=== PATIENT | female | born 1995 | race Caucasian/White ===

== ENCOUNTER 2017-04-05 15:23 | Emergency (ER) | payer OTHER ==
[~2017-04-05] VITALS: Ht 175.3 cm; Wt 79.4 kg
[~2017-04-05 15:23] MED LIST: ACETAMINOPHEN-1 EAC1 PO; ACETAMINOPHEN-120 ML PO; AMOXICILLIN500 M1 PO; CIPROFLOXACIN500 M1 PO; FLEXERIL PO; HYDROCODONE-AP1 EAC6 PO; HYDROCODONE-APA1 TA1 PO; IBUPROFEN 800800 M1 PO; IBUPROFEN 800800 MG PO; LEVAQUIN 500 M500 MG PO; LIDOCAINE VISC100 M1 PO; MEDROLDOSEPACK PO; NAPROSYN500 MG PO; NOHOMEMEDICATIONS; NORCO 5-325 TA1 EACH PO; PENICILLIN VK500 MG PO; PEPCID20 MG PO; PHENERGAN 25 MG25 M1 PO; PREDNISONE 20 M20 M1 PO; PREDNISONE 20 M20 MG PO; PROAIR HFA8.5 GM INH; TRINATE TABLET1 TAB PO; ULTRAM 50MG TAB50 MG PO; VENTOLIN HFA 1818 GM INH; VENTOLIN17 GM INH; ZOFRAN ODT4 MG PO; ZOFRAN4 MG PO; ZPAK PO; ZYRTEC10 M5 PO
[2017-04-05] MEDS ORDERED: AMOXICILLIN 50500 MG PO (15:36)
[2017-04-05] MEDS ORDERED: TYLENOL EXTRA500 MG PO (15:37)
[2017-04-05] MEDS ORDERED: IBUPROFEN 800800 M1 PO (15:37)
[2017-04-05] MEDS ORDERED: TRAMADOL 50 MG50 MG PO (16:36)
[2017-04-05 16:43] VITALS: BP 128/76
== END 2017-04-05 16:44 | disposition home or self-care (01) ==
LOC: M.ERS 15:23
DX: M27.3 Alveolitis of jaws (principal); F31.9 Bipolar disorder, unspecified; F41.9 Anxiety disorder, unspecified; F17.210 Nicotine dependence, cigarettes, uncomplicated; Z98.890 Other specified postprocedural states

== ENCOUNTER 2017-04-22 22:38 | Emergency (ER) | payer OTHER ==
[~2017-04-22] VITALS: Ht 172.7 cm; Wt 74.8 kg
[~2017-04-22 22:38] MED LIST changes: +AMOXICILLIN 50500 MG PO; +TRAMADOL 50 MG50 MG PO; +TYLENOL EXTRA500 MG PO
[2017-04-22 23:34] VITALS: BP 123/69
== END 2017-04-22 23:35 | disposition home or self-care (01) ==
LOC: M.ERS 22:38
DX: J02.8 Acute pharyngitis due to other specified organisms (principal); B97.89 Other viral agents as the cause of diseases classified elsewhere; F31.9 Bipolar disorder, unspecified; F41.9 Anxiety disorder, unspecified; F17.210 Nicotine dependence, cigarettes, uncomplicated; Z98.890 Other specified postprocedural states; Z90.49 Acquired absence of other specified parts of digestive tract

== ENCOUNTER 2017-07-18 02:03 | Emergency (ER) | payer OTHER ==
[~2017-07-18] VITALS: Ht 175.3 cm; Wt 81.7 kg
[2017-07-18 03:22] LABS: ABSOLUTE BASOPHILS 0.1 thou/uL (0.0-0.2); ABSOLUTE EOSINOPHILS 0.4 thou/uL (0.0-0.7); ABSOLUTE LYMPHOCYTES 3.2 thou/uL (0.8-5.3); ABSOLUTE MONOCYTES 0.8 thou/uL (0.0-1.2); ABSOLUTE NEUTROPHILS 6.9 thou/uL (1.6-8.1); BASOPHILS 0.6 %; EOSINOPHILS 3.5 %; HEMATOCRIT 40.9 % (37.0-47.0); HEMOGLOBIN 13.8 gm/dL (12.0-15.0); LYMPHOCYTES 28.2 %; MCH 28.5 pg (26.0-34.0); MCHC 33.7 g/dL (28.0-37.0); MCV 84.5 fL (80.0-100.0); MONOCYTES 7.1 %; MPV 8.8 fl. (7.2-11.1); NUCLEATED RBCS 0 /100WBC; PLATELET COUNT* 265 thou/uL (150-400); POLYS 60.6 %; RBC 4.84 mil/uL (4.20-5.00); WBC 11.3 thou/uL (4.0-11.0)
[2017-07-18 03:29] LABS: CALCIUM 8.8 mg/dL (8.5-10.1); CREATININE 0.8 mg/dL (0.6-1.3); POTASSIUM 3.7 mmol/L (3.5-5.1)
[2017-07-18 03:33] LABS: TOTAL BILIRUBIN 0.4 mg/dL (<0.1-1.0); TOTAL PROTEIN 7.5 g/dL (6.4-8.2)
[2017-07-18 04:23] LABS: URINE BILIRUBIN NEGATIVE (Negative); URINE BLOOD NEGATIVE (Negative); URINE CLARITY CLEAR; URINE COLOR YELLOW; URINE GLUCOSE-RANDOM NEGATIVE (Negative); URINE KETONES NEGATIVE (Negative); URINE LEUKOCYTES-REFLEX NEGATIVE (Negative); URINE NITRITE-REFLEX NEGATIVE (Negative); URINE PROTEIN NEGATIVE (Negative); URINE SPECIFIC GRAVITY <= 1.005 (1.005-1.030); URINE UROBILINOGEN 0.2 E.U./dl (0.2-1.0)
[2017-07-18 04:58] VITALS: BP 105/70
== END 2017-07-18 04:59 | disposition home or self-care (01) ==
LOC: M.ERS 02:03
PROVIDERS: Personal Emergency Response Attendant
DX: K59.00 Constipation, unspecified (principal); F31.9 Bipolar disorder, unspecified; F41.9 Anxiety disorder, unspecified; F17.210 Nicotine dependence, cigarettes, uncomplicated; Z90.49 Acquired absence of other specified parts of digestive tract; Z98.890 Other specified postprocedural states

== ENCOUNTER 2017-12-16 18:54 | Emergency (ER) | payer OTHER ==
[~2017-12-16] VITALS: Ht 172.7 cm; Wt 65.8 kg
[2017-12-16 20:42] LABS: ABSOLUTE BASOPHILS 0.1 thou/uL (0.0-0.2); ABSOLUTE EOSINOPHILS 0.2 thou/uL (0.0-0.7); ABSOLUTE LYMPHOCYTES 2.1 thou/uL (0.8-5.3); ABSOLUTE MONOCYTES 1.1 thou/uL (0.0-1.2); ABSOLUTE NEUTROPHILS 7.3 thou/uL (1.6-8.1); BASOPHILS 0.8 %; HEMATOCRIT 41.9 % (37.0-47.0); LYMPHOCYTES 19.5 %; MCH 29.9 pg (26.0-34.0); MCHC 33.5 g/dL (28.0-37.0); MCV 89.4 fL (80.0-100.0); MONOCYTES 10.3 %; MPV 8.7 fl. (7.2-11.1); NUCLEATED RBCS 0 /100WBC; PLATELET COUNT* 277 thou/uL (150-400); POLYS 67.4 %; RBC 4.68 mil/uL (4.20-5.00); WBC 10.9 thou/uL (4.0-11.0)
[2017-12-16 20:51] LABS: ANION GAP 5 mmol/L (7-16); BUN 10 mg/dL (7-18); CALCIUM 8.6 mg/dL (8.5-10.1); CHLORIDE 99 mmol/L (98-107); CO2 32 mmol/L (21-32); CREATININE 0.8 mg/dL (0.6-1.3); GLUCOSE 72 mg/dL (70-99); POTASSIUM 3.5 mmol/L (3.5-5.1); SODIUM 136 mmol/L (136-145)
[2017-12-16 21:02] LABS: ALBUMIN 3.2 g/dL (3.4-5.0); ALKALINE PHOSPHATASE 65 U/L (46-116); NT-PRO BRAIN NAT PEPTIDE 38 pg/mL (<300); SGOT 10 U/L (15-37); SGPT 14 U/L (30-65); TOTAL BILIRUBIN 0.2 mg/dL (<0.1-1.0); TOTAL PROTEIN 6.9 g/dL (6.4-8.2); TROPONIN-I LEVEL <0.06 ng/mL (<0.06)
[2017-12-16] MEDS ORDERED: VENTOLIN HFA 1818 GM INH (21:14)
[2017-12-16] MEDS ORDERED: MEDROLDOSEPACK PO (21:14)
[2017-12-16] MEDS ORDERED: ZPAK PO (21:14)
[2017-12-16] MEDS ORDERED: PROMETH-CODEIN 65 ML PO (21:14)
[2017-12-16 21:34] LABS: INFLUENZA A ANTIGEN None Detected (None Detect); INFLUENZA B ANTIGEN None Detected (None Detect)
[2017-12-16 22:07] VITALS: BP 93/59
--- NOTE | 2017-12-17 11:12 | EKG ---
[place] [address] ELECTROCARDIOGRAM REPORT Name: BERNARD SOY TERRY Room: [facility]#: [id number] Admission: 12/16/17 Attend Phys: Discharge: 12/16/17 Date of : [birth year] Report #: [id number] THIS REPORT FOR: //name// [facility] ED Test Date: 2017-12-16 Test Time: 20:11:12 Pat Name: ALTHEA SO Department: Room: Gender: F Process Lead: HERMINIO : 1995 Requested By: Lakisha Guillen Order Number: [id number] MD: Saman Giordano Measurements Intervals [place] Rate: 93 P: 57 OK: 122 QRS: 80 QRSD: 93 T: 27 QT: 336 QTc: 418 Interpretive Statements Sinus rhythm Borderline T wave abnormalities Compared to ECG 05/25/2016 23:57:27 No significant changes Electronically Signed On 12-17-2017 11:12:37 CDT by Saman Giordano [email or web address] <ELECTRONICALLY SIGNED> By: Saman Giordano MD, [facility] 12/17/17 1112 10 10 Saman Giordano MD, FACC /EPI
== END 2017-12-16 22:08 | disposition home or self-care (01) ==
LOC: M.ERS 18:54
PROVIDERS: Nurse Practitioner Family
DX: J20.9 Acute bronchitis, unspecified (principal); M94.0 Chondrocostal junction syndrome [Tietze]; F31.9 Bipolar disorder, unspecified; F41.9 Anxiety disorder, unspecified; Z90.49 Acquired absence of other specified parts of digestive tract; Z98.890 Other specified postprocedural states; F17.210 Nicotine dependence, cigarettes, uncomplicated

== ENCOUNTER 2017-12-17 19:21 | Inpatient (IN) | payer OTHER ==
[~2017-12-17] VITALS: Ht 172.7 cm; Wt 65.8 kg
[~2017-12-17 19:21] MED LIST changes: +PROMETH-CODEIN 65 ML PO
[2017-12-17 19:24] VITALS: BP 127/80
[2017-12-17 20:18] LABS: HEMATOCRIT 43.8 % (37.0-47.0); HEMOGLOBIN 14.5 gm/dL (12.0-15.0); MCH 29.6 pg (26.0-34.0); MCV 89.5 fL (80.0-100.0); MPV 9.2 fl. (7.2-11.1); NUCLEATED RBCS 0 /100WBC; PLATELET COUNT* 310 thou/uL (150-400); RDW-CV 14.1 % (10.5-14.5); WBC 12.6 thou/uL (4.0-11.0)
[2017-12-17 20:24] LABS: CALCIUM 8.6 mg/dL (8.5-10.1); CREATININE 0.7 mg/dL (0.6-1.3); POTASSIUM 3.5 mmol/L (3.5-5.1)
[2017-12-17 20:29] LABS: ALBUMIN 3.7 g/dL (3.4-5.0); TOTAL BILIRUBIN 0.2 mg/dL (<0.1-1.0); TOTAL PROTEIN 8.2 g/dL (6.4-8.2)
[2017-12-17 21:02] LABS: ABSOLUTE LYMPHOCYTES 1.8 thou/uL (0.8-5.3); ABSOLUTE MONOCYTES 0.8 thou/uL (0.0-1.2); ABSOLUTE NEUTROPHILS 10.1 thou/uL (1.6-8.1); ATYPICAL LYMPHS 2 %
[2017-12-17 23:20] VITALS: BP 117/73
[2017-12-17 23:43] VITALS: BP 111/78
[2017-12-18 01:19] LABS: URINE BILIRUBIN NEGATIVE (Negative); URINE BLOOD TRACE (Negative); URINE CLARITY CLEAR; URINE COLOR YELLOW; URINE GLUCOSE-RANDOM NEGATIVE (Negative); URINE KETONES NEGATIVE (Negative); URINE LEUKOCYTES-REFLEX NEGATIVE (Negative); URINE PROTEIN NEGATIVE (Negative); URINE SPECIFIC GRAVITY >= 1.030 (1.005-1.030); URINE UROBILINOGEN 0.2 E.U./dl (0.2-1.0)
[2017-12-18 01:21] LABS: URINE NITRITE-REFLEX POSITIVE (Negative)
[2017-12-18 01:40] LABS: BACTERIA-REFLEX >30 Many /HPF (None Seen); CASTS None Seen /LPF (None Seen); CRYSTALS None Seen /LPF (None Seen); MUCUS >6 Heavy strn/LPF (None Seen); SQUAMOUS 0-3 Few /LPF (0-3); URINE RBC 3-10 Few /HPF (0-2); URINE WBC-REFLEX 0-5 Rare /HPF (0-5)
--- NOTE | 2017-12-18 01:46 | NUR ---
ASSESSMENT COMPLETE. PT ADMITTED WITH PNEUMONIA. PT IN ER YESTERDAY, DIAGNOSED WITH BRONCHITIS AND FAILED OUT PATIENT MEDICATIONS. PT CAME BACK TONIGHT REPORTING CHEST AND BACK PAIN, CXR SHOWING DEVELOPING PNEUMONITIS. PT GIVEN IV ROCEPHIN AND ZITHROMAX IN ED. PT CAME TO FLOOR IN PAIN. NOTIFIED AND MEDICATION ORDERS RECEIVED AND GIVEN TO PATIENT. PT IS CURRENTLY SLEEPING COMFORTABLY. PT IS ON 2L PER NC, TITRATE TO KEEP >92%. PT HAS IV FLUIDS INFUSING. PT IS UP STANDBY ASSIST FOR WEAKNESS. PT TURNS SELF IN BED. SEE ASSESSMENT AND VITALS FOR OTHER DETAILS. CALL LIGHT WITHIN REACH, WILL CONTINUE PLAN OF CARE
[2017-12-18 01:56] LABS: AMP/METHAMP POSITIVE (Negative); BARBITURATES Negative (Negative); BENZODIAZEPINES Negative (Negative); COCAINE Negative (Negative); METHADONE Negative (Negative); OPIATES POSITIVE (Negative); PCP Negative (Negative); THC Negative (Negative)
[2017-12-18 04:29] VITALS: BP 108/67
[2017-12-18 04:40] LABS: ABSOLUTE EOSINOPHILS 0.1 thou/uL (0.0-0.7); ABSOLUTE LYMPHOCYTES 1.1 thou/uL (0.8-5.3); ABSOLUTE MONOCYTES 0.5 thou/uL (0.0-1.2); BASOPHILS 0.3 %; EOSINOPHILS 1.2 %; LYMPHOCYTES 16.6 %; MCH 29.8 pg (26.0-34.0); MCHC 33.4 g/dL (28.0-37.0); MCV 89.1 fL (80.0-100.0); MONOCYTES 7.9 %; MPV 9.1 fl. (7.2-11.1); NUCLEATED RBCS 0 /100WBC; RDW-CV 13.8 % (10.5-14.5); WBC 6.7 thou/uL (4.0-11.0)
[2017-12-18 05:11] LABS: ALBUMIN 2.5 g/dL (3.4-5.0); CALCIUM 7.3 mg/dL (8.5-10.1); CREATININE 0.7 mg/dL (0.6-1.3); POTASSIUM 3.7 mmol/L (3.5-5.1); TOTAL BILIRUBIN 0.2 mg/dL (<0.1-1.0); TOTAL PROTEIN 5.3 g/dL (6.4-8.2)
[2017-12-18 05:12] LABS: PLATELET COUNT* 201 thou/uL (150-400)
[2017-12-18 08:00] VITALS: BP 98/60
--- NOTE | 2017-12-18 14:36 | EKG ---
[place] [address] ELECTROCARDIOGRAM REPORT Name: IZAIAH SOBRAD DICKERSONE Room: [address] ADM IN .R.#: [id number] Admission: 12/17/17 Attend Phys: Craig Ashton MD Discharge: Date of : [birth year] Report #: [id number] THIS REPORT FOR: //name// [facility] ED Test Date: 2017-12-17 Test Time: 19:28:01 Pat Name: ALTHEA SO Department: Room: [address] Gender: F Tape Maker: : 1995 Requested By: Melissa Oconnor Order Number: [id number] Reading MD: Saman Giordano Measurements Intervals [place] Rate: 123 P: 72 SC: 125 QRS: 62 QRSD: 85 T: -67 QT: 293 QTc: 419 Interpretive Statements Sinus tachycardia Probable left atrial enlargement Nonspecific T abnormalities, diffuse leads Compared to ECG 12/16/2017 20:11:12 Sinus rhythm no longer present T-wave abnormality still present Electronically Signed On 12-18-2017 14:36:01 CDT by Saman Giordano [email or web address] <ELECTRONICALLY SIGNED> By: Saman Giordano MD, FACC 12/18/17 1436 27 27 Saman Giordano MD, FAC /EPI
--- NOTE | 2017-12-18 16:36 | NUR ---
SW attempted to meet with pt; pt was sleeping soundly and did not awaken to SW speaking to pt. Pt lives at home with spouse. Pt independent with mobility and ADLs. SW left resources/referral list on pt tray table. SW to continue to follow to assist with safe dc planning.
--- NOTE | 2017-12-18 16:58 | NUR ---
SHIFT NOTE - PT ASKING FOR PAIN MEDICATIONS MULTIPLE TIMES THIS SHIFT. SPOUSE/BOYFRIEND AT BEDSIDE FOR PART OF THE SHIFT. PT SLEEPING WHEN SPOUSE NOT PRESENT. PT SHOWERED THIS SHIFT.
[2017-12-18 17:18] VITALS: BP 104/69
[2017-12-19] VITALS: BP 102/66
[2017-12-19 04:00] VITALS: BP 103/66
[2017-12-19 04:06] LABS: HEMATOCRIT 33.3 % (37.0-47.0); HEMOGLOBIN 11.2 gm/dL (12.0-15.0); MCH 30.1 pg (26.0-34.0); MCHC 33.5 g/dL (28.0-37.0); MCV 89.9 fL (80.0-100.0); MPV 9.4 fl. (7.2-11.1); RBC 3.71 mil/uL (4.20-5.00); RDW-CV 13.9 % (10.5-14.5); WBC 3.1 thou/uL (4.0-11.0)
[2017-12-19 04:32] LABS: ALBUMIN 2.2 g/dL (3.4-5.0); CALCIUM 7.8 mg/dL (8.5-10.1); CREATININE 0.6 mg/dL (0.6-1.3); MAGNESIUM 1.9 mg/dL (1.8-2.4); POTASSIUM 3.4 mmol/L (3.5-5.1); TOTAL BILIRUBIN 0.1 mg/dL (<0.1-1.0); TOTAL PROTEIN 5.6 g/dL (6.4-8.2)
--- NOTE | 2017-12-19 05:10 | NUR ---
PATIENT SLEPT WELL DURING THIS SHIFT. PT REQUESTED PAIN MEDICATION AT HS THEN HAS SLEPT ALL NIGHT. PT WITH FLUIDS/ANTIBIOTICS INFUSING PER DR ORDER. PT UP AD IZAIAH TO BATHROOM TO VOID. PT WITH LT CHEST/LUNG PAIN WHEN COUGHING. LUNG SOUNDS DIMINISHED. PT DENIES NEEDS AT THIS TIME. FREQUENTLY USED ITEMS AND CALL LIGHT WITHIN REACH. SIDERAILS UPX2. WILL CONTINUE TO MONITOR.
[2017-12-19 08:20] VITALS: BP 125/71
[2017-12-19 12:00] VITALS: BP 105/61
[2017-12-19 16:00] VITALS: BP 121/69
--- NOTE | 2017-12-19 18:15 | NUR ---
PATIENT RESTING IN BED. PATIENT HAS COMPLAINTS OF PAIN WITH COUGHING, TREATED PARTIALLY WITH MEDICATION. PATIENT WAS HOPING TO DISCHARGE TODAY AND MENTIONED LEAVING AMA, BUT EDUCATION PROVIDED ON IMPORTANCE OF CARE AND PATIENT AGREEABLE TO STAYING AT THIS TIME. PATIENT IS AFEBRILE. PATIENT HAS BEEN UP AD IZAIAH IN ROOM. AT BEDSIDE. WILL CONTINUE TO MONITOR.
[2017-12-20] VITALS: BP 105/58
--- NOTE | 2017-12-20 04:41 | NUR ---
PATIENT'S TEMPERATURE DOWN TO 97.1; PT SLEEPING AND COMFORTABLE AT THIS TIME. HR = 95. PT DENIES PAIN/NAUSEA. PT NAUSEATED SEVERAL TIMES DURING THIS SHIFT BUT IS BRINGING IN FOOD FOR THE PATIENT. PT DOES NOT WANT ORDER FOR NAUSEA MEDICATION. PT GIVEN SALTINES AND [place]. ZOSYN INFUSING AT THIS TIME. FREQUENTLY USED ITEMS AND CALL LIGHT WITHIN REACH. SIDERAILS UPX2. AT BEDSIDE. WILL CONTINUE TO MONITOR.
[2017-12-20 05:15] LABS: ABSOLUTE LYMPHOCYTES 1.5 thou/uL (0.8-5.3); ABSOLUTE MONOCYTES 0.7 thou/uL (0.0-1.2); ABSOLUTE NEUTROPHILS 3.3 thou/uL (1.6-8.1); BASOPHILS 0.9 %; EOSINOPHILS 0.6 %; HEMATOCRIT 37.4 % (37.0-47.0); HEMOGLOBIN 12.7 gm/dL (12.0-15.0); LYMPHOCYTES 26.8 %; MCHC 34.1 g/dL (28.0-37.0); MCV 88.2 fL (80.0-100.0); MONOCYTES 12.6 %; MPV 9.4 fl. (7.2-11.1); NUCLEATED RBCS 0 /100WBC; PLATELET COUNT* 239 thou/uL (150-400); POLYS 59.1 %; RBC 4.24 mil/uL (4.20-5.00); RDW-CV 13.9 % (10.5-14.5); WBC 5.5 thou/uL (4.0-11.0)
[2017-12-20 05:27] LABS: ALBUMIN 2.6 g/dL (3.4-5.0); CALCIUM 8.7 mg/dL (8.5-10.1); CREATININE 0.9 mg/dL (0.6-1.3); POTASSIUM 3.7 mmol/L (3.5-5.1); TOTAL BILIRUBIN 0.2 mg/dL (<0.1-1.0); TOTAL PROTEIN 6.5 g/dL (6.4-8.2)
[2017-12-20 08:40] VITALS: BP 84/48
[2017-12-20 16:00] VITALS: BP 108/59
--- NOTE | 2017-12-20 18:40 | NUR ---
PATIENT RESTING IN BED. AT BEDSIDE. PATIENT HAS BEEN AFEBRILE TODAY. PATIENT HAS BEEN TEARFUL AND ANXIOUS TODAY. PATIENT IS CALM AT THIS TIME. PATIENT DENIES ANY PAIN. PATIENT HAS FAIR APPETITE. WILL CONTINUE TO MONITOR.
[2017-12-21] VITALS: BP 106/49
--- NOTE | 2017-12-21 06:53 | NUR ---
PATIENT WITH TEMPERATURE OF 102.8 AT SHIFT CHANGE. TYLENOL GIVEN AND IBUPROFEN GIVEN LATER. PT AFEBRILE AT MIDNIGHT AND PT IS AFEBRILE THIS AM. ATIVAN GIVEN AT 2049 FOR ANXIETY. PT WITH DIMINISHED LUNG SOUNDS. PT UP AD IZAIAH TO BATHROOM. PT'S AT BEDSIDE. DENIES NEEDS AT THIS TIME. FREQUENTLY USED ITEMS AND CALL LIGHT WITHIN REACH. SIDERAILS UPX2. WILL CONTINUE TO MONITOR.
[2017-12-21 08:10] VITALS: BP 117/76
--- NOTE | 2017-12-21 11:00 | NUR ---
CONTINUE TO FOLLOW, MET [place] PT. STATES FEELING MUCH BETTER AND HOPES TO GO HOME. IS UNINSURED BUT HAS COMMUNITY RESOURCE INFO. PT STATES SHE WILL BE ABLE TO AFFORD HER MEDS. DENIES NEEDS
[2017-12-21] MEDS ORDERED: LEVAQUIN 500 M500 M2 PO (11:38)
[2017-12-21 11:40] VITALS: BP 117/76
--- NOTE | 2017-12-21 11:54 | NUR ---
PATIENT DISCHARGED TO HOME AT THIS TIME WITH SPOUSE. IV DC'D. PATIENT REFUSING ANY PO MEDICATIONS AND IV ABX THIS AM, STATED I JUST WANT TO GO HOME. DR. QUINONES FROM ID SAW PATIENT AND OK TO DISCHARGE WITH PO ABX. DR. LU NOTIFIED AND OK TO DISCHARGE HOME. VERBALIZES UNDERSTANDING OF PAPERWORK AND SCRIPT, PATIENT DID TAKE PO DOSE OF LEVAQUIN PRIOR TO DC. PATIENT AMBULATED OUT WITH NURSING STAFF AND ALL BELONGINGS.
--- NOTE | 2018-01-16 08:16 | CON ---
[address] [address] CONSULTATION Name: ALTHEA SAUNDERS Room: [address] IN [place].#: [id number] Admission: 12/17/17 Attend Phys: Craig Ashton MD Discharge: 12/21/17 Date of : [birth year] Report #: [id number] THIS REPORT FOR: //name// CC: Craig Ashton [facility] physician/PCP DATE OF SERVICE: 12/20/2017 CONSULTATION: Infectious diseases. HISTORY OF PRESENT ILLNESS: Ms Saunders is a 22-year-old white female admitted to [facility] on 12/17/2017 because of difficulty breathing. The patient was in the ER on 12/16/2017 complaining of fevers, chills, aching, coughing for 3 weeks and getting worse and developing severe dyspnea. She was diagnosed as having asthmatic bronchitis with an element of panic. She was treated with bronchodilators and azithromycin. The patient returned the following day saying she was no better. A followup chest x-ray demonstrated a left lower lobe infiltrate and leukocytosis. She was admitted to the hospital with diagnosis of community-acquired pneumonia. She has been treated with IV antibiotic therapy with Levaquin. She is improving, but very anxious to go home. She had a fever of 38.9 yesterday. Infectious Disease consultation was requested to assist with the evaluation and management. PAST MEDICAL HISTORY: Past history is significant for mental illness including bipolar disease and anxiety. PAST SURGICAL HISTORY: Includes cholecystectomy, section and tubal ligation. FAMILY HISTORY: Noncontributory. SOCIAL HISTORY: The patient says she is and lives with her . Her chart documents that she is single. She has a son who was present in the room at the time of my examination. The patient does smoke cigarettes, about a pack per day. She denies the use of alcohol or drugs. REVIEW OF SYSTEMS: The patient says now she feels fine. She wants to go home today. She says her breathing is much better and about back to baseline. She denies fevers, chills or sweats. The patient denies any headache or sinus congestion. She denies that she wants to go home to smoke. She denies cough, chest pain or shortness of breath. The patient denies any GI or symptoms. PHYSICAL EXAMINATION: GENERAL: The patient appears not ill, anxious, but comfortable, not in any distress. VITAL SIGNS: Temperature history shows elevated temperature at 38.9 [place] [address] CONSULTATION Name: ALTHEA SAUNDERS Room: [address]#: [id number] Admission: 12/17/17 Attend Phys: Craig Ashton MD Discharge: 12/21/17 Date of : [birth year] Report #: [id number] for a single spike. She has been afebrile since then. SKIN: Shows several tattoos, but no rash, lesion nor exanthem. ENT EXAMINATION: Negative. Mucous membranes are moist and normal. No adenopathy. HEART: Heart sounds are normal. CHEST: Breath sounds are coarse and somewhat diminished. The patient was not coughing and did not appear dyspneic. ABDOMEN: Belly is thin, soft, not tender. EXTREMITIES: Unremarkable. LABORATORY DATA: White count is down from 12.6 to 5.5, hemoglobin 12.7 and platelet 235,000. Electrolytes, BUN and creatinine and liver function tests are normal. On admission, the urine drug screen was positive for methamphetamine and opiates. Blood cultures x 2 are negative. The patient has been unable to produce any sputum for culture. The chest x-ray showed no infiltrates on the 12/16/2017 ER visit. There were left lower lobe infiltrates on 12/17/2017. They have gradually recessed and are only minimally present on a most recent film. SUMMARY: In summary, the patient with asthmatic bronchitis and pneumonia that has improved on Levaquin. I suggest we continue careful observation and treatment for another 24 hours. If the blood cultures obtained at the time of fever are negative in the morning, I think it would be reasonable for the patient to go home on oral Levaquin. I have discussed with her tobacco and the need to stop smoking, particularly as she is recovering from this current bronchitis episode and it will be an advantage going forward as well. I appreciate the opportunity of input in the care of this patient. Dr. Godfrey will return tomorrow for additional followup. <ELECTRONICALLY SIGNED> By: Daljit Becker MD 01/16/18 0816 1313 [id number] Becker MD /ebenezer
== END 2017-12-21 11:59 | disposition home or self-care (01) | DRG 194 ==
LOC: M.ERS 19:21 → M.3W 22:09 → M.TBA-ER 22:09 → M.3W 23:31
PROVIDERS: Emergency Medicine; Internal Medicine; ADMIT Internal Medicine
DX: J18.1 Lobar pneumonia, unspecified organism (principal); R65.10 Systemic inflammatory response syndrome (SIRS) of non-infectious origin without acute organ dysfunction; F41.9 Anxiety disorder, unspecified; F31.9 Bipolar disorder, unspecified; E86.0 Dehydration; F17.210 Nicotine dependence, cigarettes, uncomplicated; Z90.49 Acquired absence of other specified parts of digestive tract; Z98.891 History of uterine scar from previous surgery; Z79.899 Other long term (current) drug therapy; Z28.21 Immunization not carried out because of patient refusal

== ENCOUNTER 2018-07-03 04:25 | Inpatient (IN) | payer OTHER ==
[~2018-07-03] VITALS: Ht 172.7 cm; Wt 72.6 kg
[~2018-07-03 04:25] MED LIST changes: +LEVAQUIN 500 M500 M2 PO
[2018-07-03 04:36] VITALS: BP 129/87
[2018-07-03 05:03] LABS: ABSOLUTE BASOPHILS 0.1 thou/uL (0.0-0.2); ABSOLUTE EOSINOPHILS 0.1 thou/uL (0.0-0.7); ABSOLUTE MONOCYTES 1.7 thou/uL (0.0-1.2); ABSOLUTE NEUTROPHILS 12.1 thou/uL (1.6-8.1); BASOPHILS 0.9 %; EOSINOPHILS 0.6 %; HEMOGLOBIN 13.4 gm/dL (12.0-15.0); LYMPHOCYTES 12.6 %; MCH 29.8 pg (26.0-34.0); MCHC 34.4 g/dL (28.0-37.0); MCV 86.6 fL (80.0-100.0); MONOCYTES 10.7 %; NUCLEATED RBCS 0 /100WBC; PLATELET COUNT* 292 thou/uL (150-400); POLYS 75.2 %; RDW-CV 15.2 % (10.5-14.5); WBC 16.1 thou/uL (4.0-11.0)
[2018-07-03 06:03] LABS: ALBUMIN 3.5 g/dL (3.4-5.0); CREATININE 0.8 mg/dL (0.6-1.3); POTASSIUM 3.7 mmol/L (3.5-5.1); TOTAL BILIRUBIN 0.6 mg/dL (<0.1-1.0); TOTAL PROTEIN 8.2 g/dL (6.4-8.2)
[2018-07-03 06:22] LABS: BE -1.6 mmol/L (-2 to +3); PO2 85.7 mmHg (75.0-100.0)
[2018-07-03 06:29] LABS: INFLUENZA A ANTIGEN None Detected (None Detect); INFLUENZA B ANTIGEN None Detected (None Detect)
--- NOTE | 2018-07-03 07:43 | NUR ---
RESPIRATORY THERAPY WAS PAGED FOR ORDERED BREATHING TX AT 0730. RT REPORTS THEY WILL ADMINISTER THE TREATMENT TO THE PATIENT ONCE THEY GO TO THE FLOOR AFTER 0800.
[2018-07-03 07:59] VITALS: BP 107/66
[2018-07-03 08:00] VITALS: BP 110/66
[2018-07-03 10:21] LABS: URINE BILIRUBIN NEGATIVE (Negative); URINE BLOOD 1+ (Negative); URINE CLARITY CLEAR; URINE COLOR YELLOW; URINE GLUCOSE-RANDOM NEGATIVE (Negative); URINE KETONES NEGATIVE (Negative); URINE LEUKOCYTES NEGATIVE (Negative); URINE NITRITE NEGATIVE (Negative); URINE PROTEIN TRACE (Negative); URINE UROBILINOGEN 0.2 E.U./dl (0.2-1.0)
[2018-07-03 10:37] LABS: SQUAMOUS 4-10 Moderate /LPF (0-3)
[2018-07-03 10:38] LABS: CASTS None Seen /LPF (None Seen); CRYSTALS None Seen /LPF (None Seen)
[2018-07-03 10:39] LABS: MUCUS 4-6 Moderate strn/LPF (None Seen); URINE WBC 0-5 Rare /HPF (0-5)
[2018-07-03 10:40] LABS: TRANSITIONAL EPITHEL CELL 0-3 Few /LPF (None Seen); URINE RBC 0-2 Rare /HPF (0-2)
[2018-07-03 12:00] VITALS: BP 111/61
--- NOTE | 2018-07-03 15:46 | NUR ---
ASSUMED CARE OF PATINET AT APPROX 0900. ALERT AND ORIENTED X4. ADMISSION HISTORY AND ASSESSMENT COMPLETED AND CHARTED. VSS ON ROOM AIR. NO COMPLAINTS OF PAIN, NAUSEA, OR SOA. FLUIDS STARTED AND INFUSED ORDERED. PATIENT CALLED OUT AT APPROX 1500 ASKING FOR SOMETHING FOR ANXIETY, THEN SHE ASKED IF SHE COULD LEAVE. I EXPLAINED TO THE PATIENT THE RISKS OF LEAVING AMA AND SHE STATED SHE UNDERSTOOD AND STILL WISHED TO LEAVE. PATIENTS IV DC'D AND SHE LEFT UNIT AT 1520.
[2018-07-03 16:00] VITALS: BP 114/72
== END 2018-07-03 15:20 | disposition left against medical advice (07) | DRG 195 ==
LOC: M.ERS 04:25 → M.TBA-ER 05:59 → M.2W 08:09
PROVIDERS: Personal Emergency Response Attendant; ADMIT Internal Medicine
DX: J18.9 Pneumonia, unspecified organism (principal); F31.9 Bipolar disorder, unspecified; F41.9 Anxiety disorder, unspecified; F17.210 Nicotine dependence, cigarettes, uncomplicated; R06.03 Acute respiratory distress; Z53.21 Procedure and treatment not carried out due to patient leaving prior to being seen by health care provider; Z90.49 Acquired absence of other specified parts of digestive tract; Z79.899 Other long term (current) drug therapy

== ENCOUNTER 2019-05-18 11:50 | Emergency (ER) | payer OTHER ==
[~2019-05-18] VITALS: Ht 175.3 cm; Wt 77.1 kg
[2019-05-18 12:22] LABS: INFLUENZA A ANTIGEN Negative (Negative); INFLUENZA B ANTIGEN Negative (Negative)
[2019-05-18] MEDS ORDERED: ZPAK PO (13:43)
[2019-05-18] MEDS ORDERED: TESSALON PERLE100 MG PO (13:43)
[2019-05-18] MEDS ORDERED: PROAIR HFA8.5 GM INH (13:43)
[2019-05-18] MEDS ORDERED: MEDROLDOSEPACK PO (13:43)
[2019-05-18 13:54] VITALS: BP 116/78
== END 2019-05-18 13:55 | disposition home or self-care (01) ==
LOC: M.ERS 11:50
PROVIDERS: Physician Assistant
DX: J20.9 Acute bronchitis, unspecified (principal); F17.210 Nicotine dependence, cigarettes, uncomplicated; Z90.49 Acquired absence of other specified parts of digestive tract; Z98.51 Tubal ligation status; Z98.890 Other specified postprocedural states

== ENCOUNTER 2019-06-15 09:37 | Emergency (ER) | payer OTHER ==
[~2019-06-15] VITALS: Ht 172.7 cm; Wt 77.1 kg
[~2019-06-15 09:37] MED LIST changes: +TESSALON PERLE100 MG PO
[2019-06-15] MEDS ORDERED: NOHOMEMEDICATIONS (09:50)
[2019-06-15] MEDS ORDERED: NORCO 5-325 TA1 EAC1 PO (10:15)
[2019-06-15] MEDS ORDERED: PREDNISONE 20 M20 M1 PO (10:15)
[2019-06-15] MEDS ORDERED: KEFLEX500 M1 PO (10:15)
[2019-06-15 10:32] VITALS: BP 127/94
== END 2019-06-15 10:32 | disposition home or self-care (01) ==
LOC: M.ERS 09:37
DX: S60.211A Contusion of right wrist, initial encounter (principal); F17.210 Nicotine dependence, cigarettes, uncomplicated; Z90.49 Acquired absence of other specified parts of digestive tract; Z98.890 Other specified postprocedural states; X58.XXXA Exposure to other specified factors, initial encounter; Y93.89 Activity, other specified; Y92.89 Other specified places as the place of occurrence of the external cause; Y99.8 Other external cause status

== ENCOUNTER 2020-12-21 15:14 | Emergency (ER) | payer OTHER ==
[~2020-12-21] VITALS: Ht 175.3 cm; Wt 74.8 kg
[~2020-12-21 15:14] MED LIST changes: +KEFLEX500 M1 PO; +NORCO 5-325 TA1 EAC1 PO
[2020-12-21 15:22] VITALS: BP 128/90
[2020-12-21] MEDS ORDERED: PREDNISONE 20 M20 MG PO (16:34)
[2020-12-21] MEDS ORDERED: PROAIR HFA8.5 GM INH (16:34)
[2020-12-21] MEDS ORDERED: ZPAK PO (16:34)
== END 2020-12-21 16:50 | disposition home or self-care (01) ==
LOC: M.ERS 15:14
DX: J18.8 Other pneumonia, unspecified organism (principal); F41.9 Anxiety disorder, unspecified; F17.210 Nicotine dependence, cigarettes, uncomplicated; Z90.49 Acquired absence of other specified parts of digestive tract; Z98.51 Tubal ligation status

== ENCOUNTER 2021-04-08 15:30 | Emergency (ER) | payer OTHER ==
[~2021-04-08] VITALS: Ht 175.3 cm; Wt 72.6 kg
[2021-04-08] MEDS ORDERED: AUGMENTIN 875-1 EACH PO (16:23)
[2021-04-08 16:39] VITALS: BP 157/81
== END 2021-04-08 16:40 | disposition home or self-care (01) ==
LOC: M.ERS 15:30
DX: J15.9 Unspecified bacterial pneumonia (principal); F41.9 Anxiety disorder, unspecified; F17.210 Nicotine dependence, cigarettes, uncomplicated; Z98.890 Other specified postprocedural states; Z90.49 Acquired absence of other specified parts of digestive tract